=== PATIENT | male | born 1990 | race African-American/Black ===

== ENCOUNTER 2018-09-25 02:07 | Emergency (ER) | payer OTHER ==
--- NOTE | 2018-09-25 02:38 | PDOC ---
History of Present Illness - General Stated Complaint: MIGRANES Time Seen by Provider: 09/25/18 02:30 History Source: Patient Exam Limitations: No Limitations - History of Present Illness Initial Comments: 09/25/18 02:36 28y M hx of migraines, tramatic brain injruy, avm sp 'repair in 2013" presents with migraine headache. Patient states that his headache is left-sided, pounding in nature behind his left eye associated mild photophobia, similar in nature to prior migraine headaches which typically improve with ibuprofen. No associated vision changes, fever, chills, neck pain or stiffness, numbness, tingling, weakness, vomiting. Patient also endorses mild irritation to the top of his scalp where he had the surgery there was no recent injuries or traumas. he denies any other symptoms including chest pain Shortness of breath, abdominal pain, back pain, neck pain Past History - Past Medical History Allergies/Adverse Reactions: Allergies Allergy/AdvReac Type Severity Reaction Status Date / Time amoxicillin Allergy Severe Hives Uncoded 09/25/18 03:19 Review of Systems - Review of Systems Able to Perform ROS?: Yes Comments:: 09/25/18 03:26 Constitutional - no reported Fever, Chills, HEENT: no reported vision changes, sore throat Respiratory: no reported cough, sob, hemoptysis Cardiac: no reported chest pain, palpitations, light headedness, leg swelling Abd/GI: no reported abd pain, nausea, vomiting, blood per rectum, melena, diarrhea : no reported dysuria, frequency, discharge Musculskelatal - no reported back pain, joint swelling skin - no reported bruising, erythema, rash neurological: +headache, no reported numbness, focal weakness, tingling, ataxia , hematologic: no reported easy bruising, easy bleeding *Physical Exam - Physical Exam Comments: 09/25/18 03:27 GENERAL: The patient is awake, alert, and fully oriented, Nontoxic - in no acute distress. HEAD: Normocephalic, atraumatic. EYES: extraocular movements intact, sclera anicteric, conjunctiva clear. ENT: Normal voice, Moist mucous membranes. NECK: Normal range of motion, supple LUNGS: Breath sounds equal, clear to auscultation bilaterally. No wheezes, no rhonchi, no rales. HEART: Regular rate and rhythm, normal S1 and S2 without murmur, rub or gallop. ABDOMEN: Soft, nontender, normoactive bowel sounds. No guarding, no rebound. . No CVA tenderness EXTREMITIES: Normal range of motion, no edema. No clubbing or cyanosis. No cords, erythema, or tenderness. NEUROLOGICAL: No facial assymetry, Normal speech, moving all 4 extremities spontaneously and symmetrically, sensation intact throughout PSYCH: Normal mood, normal affect. SKIN: Warm, Dry, normal turgor, Medical Decision Making - Medical Decision Making 09/25/18 03:29 Suspect migraine headache, no neuro complaints We'll give the patient by mouth Reglan he declines IV fluids IV meds. [facility] have [facility] follow-up with his neurologist I discussed the physical exam findings, ancillary test results and final diagnoses with the patient. I answered all of the patient's questions. The patient was satisfied with the care received and felt comfortable with the discharge plan and treatment plan. The patient will call their primary care physician within 24 hours to arrange follow-up and will return to the Emergency Department with any new, persistent or worsening symptoms. *DC/Admit/Observation/Transfer Diagnosis at time of Disposition: Migraine headache Qualifiers: Migraine type: other Status migrainosus presence: without status migrainosus Intractability: not intractable Qualified Code(s): G43.809 - Other migraine, not intractable, without status migrainosus - Discharge Dispostion Disposition: HOME Condition at time of disposition: Stable Decision to Admit order: No - Referrals - Patient Instructions Printed Discharge Instructions: DI for Headache Additional Instructions: Return to the emergency department immediately with ANY new, persistent or worsening symptoms including worsening headache, vision changes, numbness/ tingling/weakness, persistent nausea and vomiting or any other concerns. Make sure you are getting adaqute sleep and hydration. You MUST call and follow up with your doctor tomorrow for further evaluation of your symptoms. Your emergency department visit is not complete without a followup with your doctor for reevaluation. Results were discussed with you. Please make sure your doctor reviews the results of your emergency evaluation. If you had any xrays during your visit, it was read preliminarily by myself, a Radiologist will review it and if there are any additional findings we will call you. Print Language: YORUBA - Post Discharge Activity
[2018-09-25 03:18] VITALS: BP 143/87; PULSE 68; TEMP 97.9; BMI 29.0
[2018-09-25] MEDS ORDERED: METOCLOPRAMIDE HCL 10 MG TABLET (FP) PO ONE ×2 (03:24→03:26)
== END 2018-09-25 04:18 | disposition home or self-care (01) ==
LOC: JER 02:07
DX: G43.809 Other migraine, not intractable, without status migrainosus (principal)
CPT/HCPCS: 99281-25

== ENCOUNTER 2019-10-31 10:11 | Emergency (ER) | payer OTHER ==
[2019-10-31 10:16] VITALS: BP 154/99; PULSE 106; TEMP 98.9; BMI 29.7
[2019-10-31] MEDS ORDERED: KETOROLAC TROMETHAMINE 30 MG/1 ML VIAL IM ONE (10:54)
--- NOTE | 2019-10-31 11:13 | PDOC ---
History of Present Illness - General Chief Complaint: Respiratory Stated Complaint: COLD SYMPTOMS Time Seen by Provider: 10/31/19 10:35 History Source: Patient Exam Limitations: No Limitations Past History - Past Medical History Allergies/Adverse Reactions: Allergies Allergy/AdvReac Type Severity Reaction Status Date / Time amoxicillin Allergy Severe Hives Uncoded 10/31/19 10:16 Home Medications: Ambulatory Orders Lidocaine 2% Viscous Oral [Xylocaine 2% Viscous Oral -] 20 ml PO TID PRN #6 ud 10/31/19 Cardiac Disorders: Yes COPD: No - Immunization History Td Vaccination: Yes Immunization Up to Date: Yes - Psycho Social/Smoking Cessation Hx Smoking History: Never smoked Have you smoked in the past 12 months: No Number of Cigarettes Smoked Daily: 0 Hx Alcohol Use: No Drug/Substance Use Hx: No *Physical Exam - Vital Signs Last Vital Signs Temp Pulse Resp BP Pulse Ox 98.9 F 106 H 18 154/99 97 10/31/19 10:14 10/31/19 10:14 10/31/19 10:14 10/31/19 10:14 10/31/19 10:14 - Physical Exam General Appearance: No: Apparent Distress HEENT: positive: Normal Voice, TMs Normal, Pharyngeal Erythema. negative: Muffled/Hoarse voice, Tonsillar Exudate, Tonsillar Erythema Respiratory/Chest: positive: Lungs Clear, Normal Breath Sounds. negative: Respiratory Distress Cardiovascular: positive: Regular Rhythm, Regular Rate, S1, S2. negative: Murmur Gastrointestinal/Abdominal: positive: Soft. negative: Tender Integumentary: positive: Normal Color Neurologic: positive: Alert Medical Decision Making - Medical Decision Making 29-year-old male with no significant past medical history presents with sore throat for 3 days along with subjective fever, cough, congestion. He denies body aches, shortness of breath, chest pain, abdominal pain, nausea, vomiting, diarrhea, recent travel. Did not take any meds today Likely viral syndrome Given Toradol and lidocaine for sore throat Patient is outside 48-hour window for starting Tamiflu treatment 10/31/19 11:09 Discharge - Discharge Information Problems reviewed: Yes Clinical Impression/Diagnosis: Viral URI Condition: Stable Disposition: HOME - Admission No - Additional Discharge Information Prescriptions: Lidocaine 2% Viscous Oral [Xylocaine 2% Viscous Oral -] 20 ml PO TID PRN #6 ud PRN Reason: throat pain Prescription Drug Monitoring Program (I-STOP) results: I-STOP not reviewed - Follow up/Referral - Patient Discharge Instructions Patient Printed Discharge Instructions: DI for Viral Upper Respiratory Infection -- Adult Additional Instructions: Thank you for choosing [facility]. It was a pleasure taking care of you. You have a viral infection Alternate between Tylenol every 4 and Motrin every 6 hours as needed for fever Recommend rest and hydration Salt water gargles and lemon honey tea will also help Follow-up with your doctor in 2 days Return to the Emergency Department if your symptoms worsen or persist or have other concerning symptoms. - Post Discharge Activity
[2019-10-31] MEDS ORDERED: LIDOCAINE VISCOUS 2% ORAL/TOP 20 ML UNIT-DOSE CUP MM ONE (11:45)
== END 2019-10-31 11:33 | disposition home or self-care (01) ==
LOC: JERFT 10:11
DX: J06.9 Acute upper respiratory infection, unspecified (principal); B97.89 Other viral agents as the cause of diseases classified elsewhere
CPT/HCPCS: 99281-25

== ENCOUNTER 2019-11-18 12:34 | Emergency (ER) | payer OTHER ==
--- NOTE | 2019-11-18 12:39 | PDOC ---
Rapid Medical Evaluation Medical Evaluation: Allergies Allergy/AdvReac Type Severity Reaction Status Date / Time amoxicillin Allergy Mild Hives Verified 10/31/19 11:21 11/18/19 12:36 CC: interdigital right foot pain; PMHx- Lyme disease PE: swelling present to right interdigital 4th and 5th toe. No tenderness Orders: nothing Patient will proceed to ED for continued evaluation. Discharge Disposition - Diagnosis Foot pain, right - Referrals - Patient Instructions - Post Discharge Activity
[2019-11-18 12:41] VITALS: BP 131/71; PULSE 85; TEMP 98; BMI 29.4
--- NOTE | 2019-11-18 13:18 | PDOC ---
History of Present Illness - General Chief Complaint: Pain Stated Complaint: RT FOOT PAIN Time Seen by Provider: 11/18/19 12:37 History Source: Patient - History of Present Illness Initial Comments: 11/18/19 13:46 Chief complaint: Foot swelling and pain Patient is a healthy 29-year-old male who states that he noticed his right foot started becoming swollen with his little toe on Friday after wearing boots to work. Patient denies any injury, he states that he has more pain now and it feels like his foot is becoming swollen. No fever. GENERAL/CONSTITUTIONAL: No fever, weakness. dizziness HEAD, EYES, EARS, NOSE AND THROAT: No change in vision. No ear pain or discharge. No sore throat. CARDIOVASCULAR: No chest pain RESPIRATORY: No shortness of breath or cough GASTROINTESTINAL: No pain, nausea, vomiting, diarrhea or constipation GENITOURINARY: No dysuria MUSCULOSKELETAL: No neck or back pain SKIN: No rash NEUROLOGIC: No headache, vertigo, loss of consciousness, or loss of sensation. GENERAL: The patient is awake, alert, and fully oriented, in no acute distress. HEAD: Normal with no signs of trauma. EYES: Pupils equal, round and reactive to light, sclera anicteric, conjunctiva clear. ENT: pharynx: no erythema, no exudate, uvula midline NECK: supple CHEST: clear, nontender, rr ABD: soft, nontender BACK: no tenderness or signs of injury EXTREMITIES: Right foot, mild swelling and tenderness to the little toe extending to the fourth toe and a little bit into the foot, no gross erythema, some dried skin with likely skin opening between the fourth and fifth toes. No other concerning clinical signs, no pain or swelling to the rest of the extremity. Rest of extremities, normal range of motion, no edema. NEUROLOGICAL: Normal speech, normal gait. SKIN: Warm, Dry Past History - Past Medical History Allergies/Adverse Reactions: Allergies Allergy/AdvReac Type Severity Reaction Status Date / Time amoxicillin Allergy Mild Hives Verified 11/18/19 12:38 Home Medications: Ambulatory Orders Lidocaine 2% Viscous Oral [Xylocaine 2% Viscous Oral -] 20 ml PO TID PRN #6 ud 10/31/19 Clindamycin [Cleocin -] 300 mg PO Q6H #28 capsule 11/18/19 Cardiac Disorders: Yes COPD: No - Immunization History Td Vaccination: Yes Immunization Up to Date: Yes - Psycho Social/Smoking Cessation Hx Smoking History: Never smoked Have you smoked in the past 12 months: No Number of Cigarettes Smoked Daily: 0 Hx Alcohol Use: No Drug/Substance Use Hx: No *Physical Exam - Vital Signs Last Vital Signs Temp Pulse Resp BP Pulse Ox 98 F 85 18 131/71 72 L 11/18/19 12:38 11/18/19 12:38 11/18/19 12:38 11/18/19 12:38 11/18/19 12:38 Medical Decision Making - Medical Decision Making 11/18/19 13:54 Healthy 29-year-old male with likely localized skin infection secondary to dried skin, opening between the fourth and fifth toes, no paronychia, no signs of abscess, no gross spreading cellulitis. Patient will be given wound care instructions, clindamycin since he is allergic to amoxicillin. Given follow-up with public area supervisor. Patient is ambulatory. Discussed issues, findings, results, applicable medications and treatments and follow-up. All these were understood and all questions were answered Discharge - Discharge Information Problems reviewed: Yes Clinical Impression/Diagnosis: Skin infection Condition: Stable Disposition: HOME - Admission No - Additional Discharge Information Prescriptions: Clindamycin [Cleocin -] 300 mg PO Q6H #28 capsule - Follow up/Referral Referrals: Cleve Judge DPM [Staff Physician] - - Patient Discharge Instructions Additional Instructions: Take the clindamycin 100 mg every 6 hours for 7 days Clean with soap and water 2-3 times daily, apply bacitracin Have her reevaluated if redness, pus, fever or getting worse Followup with your doctor - Post Discharge Activity
== END 2019-11-18 13:38 | disposition home or self-care (01) ==
LOC: JERFT 12:34
DX: L08.89 Other specified local infections of the skin and subcutaneous tissue (principal); Z88.0 Allergy status to penicillin
CPT/HCPCS: 99283-25